=== PATIENT | male | born 1985 | race Caucasian/White ===

== ENCOUNTER 2022-06-09 12:09 | Emergency (ER) | payer SELFPAY ==
[2022-06-09] MEDS ORDERED: TETANUS & DIPHTHERIA TOX,ADULT 0.5 ML VIAL ONE (13:12)
[2022-06-09] MEDS ORDERED: BUPIVACAINE 0.5% PF 10 ML VIAL ONE (13:12)
--- NOTE | 2022-06-09 14:38 | EDPHYS ---
Physician Documentation [facility] Name: Sawyer Mendez Age: 37 yrs Sex: Male : 1985 Arrival Date: 06/09/2022 Time: 12:14 Bed Treatment Private MD: ED Physician Jacek Petersen HPI: 06/09 13:02 This 37 yrs old Male presents to ER via Ambulatory with complaints of Laceration - jmm thumb. 13:02 The patient or guardian reports injury. Onset: The symptoms/episode began/occurred jmm acutely. Modifying factors: The symptoms are alleviated by nothing, the symptoms are aggravated by nothing. This is a 37-year-old male with no chronic medical conditions presents emerged part with a laceration to his left thumb. Patient states he excellently cut himself with a new knife. Patient is not up-to-date on tetanus immunization. Denies other injury.. Historical: - Allergies: 12:57 PENICILLINS; jl7 - Home Meds: 12:57 None [Active]; jl7 - PMHx: 12:57 None; jl7 - Immunization history:: Adult Immunizations not up to date, Last tetanus immunization: > 10 years ago. - Social history:: Smoking status: Patient reports the use of cigarette tobacco products. ROS: 13:02 Constitutional: Negative for fever, chills, and weight loss, Cardiovascular: Negative jmm for chest pain, palpitations, and edema, Respiratory: Negative for shortness of breath, cough, wheezing, and pleuritic chest pain. 13:02 Skin: Positive for laceration(s). 13:02 All other systems are negative. Exam: 13:02 Constitutional: This is a well developed, well nourished patient who is awake, alert, jmm and in no acute distress. Head/Face: atraumatic. Eyes: EOMI, no conjunctival erythema appreciated ENT: Moist Mucus Membranes Neck: Trachea midline, Supple Chest/axilla: Normal chest wall appearance and motion. Cardiovascular: Regular rate and rhythm. No edema appreciated Respiratory: Normal respirations, no respiratory distress appreciated Abdomen/GI: Non distended Back: Normal ROM 13:02 Skin: 4 cm laceration noted to the left palmar surface of the thumb. 13:02 Neuro: Orientation: is normal, Mentation: is normal, Memory: is normal. 13:02 Psych: Behavior/mood is pleasant, cooperative. Vital Signs: 12:55 BP 137 / 96; Pulse 67; Resp 17; Temp 98.7; Pulse Ox 99% ; Weight 63.5 kg; Height 5 ft. jl7 8 in. (172.72 cm); Pain 2/10; 12:55 Body Mass Index 21.29 (63.50 kg, 172.72 cm) jl7 Laceration: 14:36 Wound Repair of 4cm ( 1.6in ) subcutaneous laceration to left thumb. Distal jmm neuro/vascular/tendon intact. Anesthesia: Digital block administered with 4 mls of 0.5% marcaine. Wound prep: Simple cleansing with betadine by me. Skin closed with 8 5-0 Prolene using simple sutures and sterile technique. Patient tolerated well. MDM: 13:02 Patient medically screened. m 14:25 Data reviewed: vital signs, nurses notes. I considered the following discharge jm prescriptions or medication management in the emergency department Medications were administered in the Emergency Department. See MAR. Counseling: I had a detailed discussion with the patient and/or guardian regarding: the historical points, exam findings, and any diagnostic results supporting the discharge/admit diagnosis. 14:36 ED course: Patient is alert nontoxic appearance in the ED. Patient given wound [facility] infection return precautions. Patient understood agrees plan of care.. Administered Medications: 13:18 Drug: Tetanus-Diphtheria Toxoid Adult 0.5 ml {Director Of Pupil Personnel Program: [employer]. Exp: ap3 08/30/2023. Lot #: [id number]. } Route: IM; Site: left deltoid; 13:49 Follow up: Response: No adverse reaction ss 13:50 Drug: Marcaine (bupivacaine) (0.5 %) 10 ml {Note: Administered by PA. Kelton} Volume: 10 ss ml; Route: Infiltration; Disposition: 18:05 Co-signature as Attending Physician, Jacek MICHELLE was immediately available on-site ms3 in the Emergency Department for consultation in the care of the patient. Disposition Summary: 06/09/22 14:37 Discharge Ordered Location: Home [facility] Condition: Stable jm Diagnosis - Laceration of the left thumb jm Followup: jmm - With: Private Physician - When: 10 - 14 days - Reason: Recheck today's complaints, Continuance of care, Re-evaluation by your physician Discharge Instructions: - Discharge Summary Sheet [facility] - Laceration Care, Adult [facility] Forms: - Medication Reconciliation Form [facility] - Thank You Letter angella - Antibiotic Education [facility] - Prescription Opioid Use [facility] Prescriptions: - Doxycycline Hyclate 100 mg Oral Tablet - take 1 tablet by ORAL route every 12 hours; 20 tablet; Refills: 0, Product [facility] Selection Permitted Signatures: Kelton Cooley PA PA jmm Smirch, Shelby RN RN ss Mary Hunter RN RN jl7 Clarissa Hancock RN RN ap3 Jacek Petersen, DO KO ms3
--- NOTE | 2022-06-09 14:38 | ER ---
Nurse's Notes [facility] Name: Sawyer Mendez Age: 37 yrs Sex: Male : 1985 Arrival Date: 06/09/2022 Time: 12:14 Bed Treatment Private MD: Diagnosis: Laceration of the left thumb Presentation: 06/09 12:55 Chief complaint: Patient states: Sliced left thumb with razor blade. Coronavirus jl7 screen: Vaccine status: Patient reports being unvaccinated. At this time, the client does not indicate any symptoms associated with coronavirus-19. Ebola Screen: No symptoms or risks identified at this time. Complicating Factors: There are no complicating factors for this patient. Initial Sepsis Screen: Does the patient meet any 2 criteria? No. Patient's initial sepsis screen is negative. Does the patient have a suspected source of infection? No. Patient's initial sepsis screen is negative. Risk Assessment: Do you want to hurt yourself or someone else? Patient reports no desire to harm self or others. Onset of symptoms was June 09, 2022. 12:55 Method Of Arrival: Ambulatory 7 12:55 Acuity: FERNANDEZ 4 jl7 Triage Assessment: 12:57 General: Appears in no apparent distress. uncomfortable, Behavior is calm, cooperative, jl7 appropriate for age. Pain: Complains of pain in left thumb Pain currently is 2 out of 10 on a pain scale. Injury Description: Avulsion sustained to left thumb is partial was sustained 30-60 minutes ago. 13:01 Injury Description: Laceration sustained to left thumb. ap3 Historical: - Allergies: 12:57 PENICILLINS; jl7 - Home Meds: 12:57 None [Active]; jl7 - PMHx: 12:57 None; jl7 - Immunization history:: Adult Immunizations not up to date, Last tetanus immunization: > 10 years ago. - Social history:: Smoking status: Patient reports the use of cigarette tobacco products. Screenin:00 [facility] ED Fall Risk Assessment (Adult) History of falling in the last 3 months, ap3 including since admission No falls in past 3 months (0 pts). Abuse screen: Denies threats or abuse. Nutritional screening: No deficits noted. Tuberculosis screening: No symptoms or risk factors identified. Assessment: 13:01 Musculoskeletal: laceration located to left thumb. ap3 13:58 Reassessment: Kelton at bedside repairing laceration. General: Appears in no apparent ss distress. comfortable. Neuro: Level of Consciousness is awake, alert, obeys commands. Cardiovascular: Capillary refill < 3 seconds is brisk in bilateral fingers. Respiratory: Airway is patent Respiratory effort is even, unlabored, Respiratory pattern is regular, symmetrical. Derm: Skin is intact, is healthy with good turgor, Skin is dry, Skin is pink, warm \T\ dry. normal. Vital Signs: 12:55 BP 137 / 96; Pulse 67; Resp 17; Temp 98.7; Pulse Ox 99% ; Weight 63.5 kg; Height 5 ft. jl7 8 in. (172.72 cm); Pain 2/10; 12:55 Body Mass Index 21.29 (63.50 kg, 172.72 cm) jl7 ED Course: 12:14 Patient arrived in ED. as 12:43 Kelton Cooley PA is PHCP. [facility] 12:43 Jacek Petersen DO is Attending Physician. [facility] 12:57 Triage completed. jl7 12:57 Arm band placed on right wrist. jl7 13:00 Clarissa Hancock, RN is Primary Nurse. ap3 13:00 Patient has correct armband on for positive identification. Bed in low position. Noise ap3 minimized. 14:44 Assist provider with laceration repair on left thumb that was 2.5 cm. or less Performed ss by Kelton LOTT Dressed with Billie, Neosporin, Patient tolerated well. Patient did not have IV access during this emergency room visit. Administered Medications: 13:18 Drug: Tetanus-Diphtheria Toxoid Adult 0.5 ml {Curb Attendant: [employer]. Exp: ap3 08/30/2023. Lot #: [id number]. } Route: IM; Site: left deltoid; 13:49 Follow up: Response: No adverse reaction ss 13:50 Drug: Marcaine (bupivacaine) (0.5 %) 10 ml {Note: Administered by OREN Melara.} Volume: 10 ss ml; Route: Infiltration; Medication: 13:58 VIS not applicable for this client. ss Outcome: 14:37 Discharge ordered by . [facility] 14:44 Discharged to home ambulatory. ss 14:44 Condition: good 14:44 Discharge instructions given to patient, family, Instructed on discharge instructions, follow up and referral plans. medication usage, Demonstrated understanding of instructions, follow-up care, medications, Prescriptions given X 1. 14:45 Patient left the ED. ss Signatures: Kelton Cooley PA PA jmm Martinez, Amelia as Smirch, Shelby, RN RN ss Mary Hunter RN RN jl7 Clarissa Hancock RN RN ap3
[2022-06-09 14:51] VITALS: BP 137/96; TEMP 98.7; O2SAT 99
== END 2022-06-09 14:45 | disposition home or self-care (01) ==
LOC: ER 12:09
PROC: 0HQGXZZ Repair Left Hand Skin, External Approach (ICD-10-PCS; principal; 2022-06-09)
DX: S61.012A Laceration without foreign body of left thumb without damage to nail, initial encounter (principal); Z23 Encounter for immunization; Z88.0 Allergy status to penicillin
CPT/HCPCS: 90714